=== PATIENT | male | born 1955 | race Two or more races ===

== ENCOUNTER 2016-08-05 10:56 | Emergency (ER) | payer OTHER ==
[~2016-08-05] VITALS: Ht 165.1 cm; Wt 79.8 kg
[~2016-08-05 10:56] MED LIST: NORCO 5-325 TA1 EACH ORAL
[2016-08-05] MEDS ORDERED: KEFLEX500 MG ORAL (11:52)
[2016-08-05 12:29] VITALS: BP 152/86
[2016-08-05 12:34] VITALS: BP 152/86
--- NOTE | 2016-08-09 14:36 | Emergency Room Report ---
History of Present Illness General Chief Complaint: Eye Problems Source: Patient Present Illness HPI 61-year-old male presents ED complaining of pain and swelling to the right eye x3 days. States there is swelling around the right eye specifically to the eyelids. Denies any eye pain. Denies any itchiness, photophobia. Denies any discharge. Denies fevers or chills. Pain as throbbing, 7/10, nonradiating. No other aggravating or relieving factors. Denies any other associated symptoms Allergies: Coded Allergies: NO KNOWN ALLERGIES (Unverified Allergy, Unknown, 05/26/15) Patient History Past Medical History: DM Past Surgical History: none Pertinent Family History: none Social History: Denies: alcohol use, drug use, smoking Immunizations: UTD Reviewed Nursing Documentation: PMH: Agreed, PSxH: Agreed Nursing Documentation-PMH Hx Diabetes: Yes Review of Systems All Other Systems: negative except mentioned in HPI Physical Exam Vital Signs Date Time Temp Pulse Resp B/P Pulse Ox O2 Delivery O2 Flow Rate FiO2 08/05/16 11:04 98.2 82 18 156/87 100 Room Air Sp02 EP Interpretation: reviewed, normal General Appearance: no apparent distress, alert, GCS 15, non-toxic Head: normocephalic, atraumatic Eyes: right eye other - erythema/swelling around R eye, bilateral eye EOMI, bilateral eye PERRL, bilateral eye normal inspection, bilateral eye visual acuity ENT: hearing grossly normal, normal pharynx, no angioedema, normal voice Neck: full range of motion, supple/symm/no masses Cardiovascular #1: regular rate, rhythm, no edema Gastrointestinal: normal bowel sounds, non tender, soft, non-distended, no guarding, no rebound Rectal: deferred Genitourinary: no CVA tenderness Musculoskeletal: normal inspection Neurologic: alert, oriented x3, responsive, motor strength/tone normal, sensory intact, speech normal Psychiatric: normal inspection Skin: normal inspection Lymphatic: normal inspection Medical Decision Making Diagnostic Impression: Primary Impression: Eyelid cellulitis Qualified Codes: H00.033 - Abscess of eyelid right eye, unspecified eyelid ER Course Hospital Course 61-year-old male presents ED complaining of right eye pain and swelling Differential diagnoses include: conjunctivitis, traumatic iritis, foreign body, corneal abrasion Clinical course Patient placed on stretcher. After initial history physical exam reveals a middle-aged male in no acute distress. There is erythema and swelling to the upper lower eyelids. No fluctuance or discharge. No evidence of involvement to the globe itself. Diagnosis -eyelid cellulitis Stable and discharged to home with prescription for Keflex. Followup with PMD/ Optho. Return to ED if symptoms recur or worsen Last Vital Signs Date Time Temp Pulse Resp B/P Pulse Ox O2 Delivery O2 Flow Rate FiO2 08/05/16 12:34 98.4 78 18 152/86 98 Room Air Status: improved Disposition: HOME, SELF-CARE Condition: Stable Scripts Cephalexin* (KEFLEX*) 500 Mg Capsule 500 MG ORAL Q6H, #28 CAP 0 Refills Prov: RADHA PEREZ M.D. 08/05/16 Referrals: [facility],REFERRING (PCP) Patient Instructions: Cellulitis RADHA PEREZ M.D. Aug 09, 2016 14:36
== END 2016-08-05 12:52 | disposition home or self-care (01) ==
LOC: EDBD 11:51 → EMR 11:51
DX: H00.033 Abscess of eyelid right eye, unspecified eyelid (principal); E11.9 Type 2 diabetes mellitus without complications
CPT/HCPCS: 99283